=== PATIENT | female | born 1995 ===

== ENCOUNTER → 2017-03-30 | Outpatient (REF) | LOC: WSOH 11:03 | DX: Z02.89 Encounter for other administrative examinations (principal) ==

== ENCOUNTER → 2017-04-01 | Outpatient (REF) | LOC: WSOH 13:45 | DX: Z02.89 Encounter for other administrative examinations (principal) ==

== ENCOUNTER → 2017-04-07 | Outpatient (REF) | LOC: WSOH 08:16 | DX: Z02.89 Encounter for other administrative examinations (principal) ==